=== PATIENT | male | born 1980 | race African-American/Black ===

== ENCOUNTER 2023-05-02 12:58 | Emergency (ER) | payer SELFPAY ==
[2023-05-02 13:05] VITALS: BP 135/87; PULSE 91; RESP 18; TEMP 36.8; O2SAT 100; BMI 22.3
--- NOTE | 2023-05-02 13:16 | ED_ITS ---
HPI - URI/Sore Throat General Chief Complaint: Upper Respiratory Infection Stated Complaint: VOMETING DIAHRREA Time Seen by Provider: 05/02/23 13:10 Source: patient History of Present Illness HPI Narrative: 43-year-old male presents for body aches cough and not feeling well. He has been sick since yesterday. Last week his son had influenza. All of the history is obtained from his significant other who provides his history. No vomiting or diarrhea. Related Data Home Medications ?Medication ?Instructions ?Recorded ?Confirmed No Known Home Medications 05/02/23 05/02/23 Allergies Allergy/AdvReac Type Severity Reaction Status Date / Time No Known Drug Allergies Allergy Verified 05/02/23 13:10 Review of Systems ROS Narrative A ten point review of systems is negative except as noted above. Exam Narrative Exam Narrative: Nurses note and vital signs reviewed and patient is not hypoxic. General: The patient appears in no apparent respiratory distress. He is laying on his side and appears uncomfortable and is curled up. Skin: Warm, dry, no pallor noted. There is no rash noted. Head: Normocephalic, atraumatic Eye: Normal conjunctiva, no drainage Ears, Nose, Mouth, and Throat: oral mucosa is moist. Nares patent. Cardiovascular: Regular Rate and Rhythm Respiratory: Patient is in no distress, no accessory muscle use, lungs are clear to auscultation, no wheezing, rales or rhonchi Back: non-tender GI: Soft and nontender Musculoskeletal: The patient has no evidence of calf tenderness, no pitting edema, symmetrical pulses noted bilaterally Neurological: Awake and alert Psychiatric: Cooperative Constitutional Vital Signs, click to edit/add: Last Vital Signs Temp 98.2 F 05/02/23 13:05 Pulse 91 H 05/02/23 13:05 Resp 18 05/02/23 13:05 BP 135/87 05/02/23 13:05 Pulse Ox 100 05/02/23 13:05 Course Vital Signs Vital signs: Vital Signs Temperature 98.2 F 05/02/23 13:05 Pulse Rate 91 H 05/02/23 13:05 Respiratory Rate 18 05/02/23 13:05 Blood Pressure 135/87 05/02/23 13:05 Pulse Oximetry 100 05/02/23 13:05 Temperature 98.2 F 05/02/23 13:05 Pulse Rate 91 H 05/02/23 13:05 Respiratory Rate 18 05/02/23 13:05 Blood Pressure 135/87 05/02/23 13:05 Pulse Oximetry 100 05/02/23 13:05 MDM - URI/Sore Throat MDM Narrative Medical decision making narrative: COVID and influenza test are negative. I am however highly suspicious of influenza because his son just got over influenza and his symptoms are consistent with influenza. He was given a work note and recommended Motrin. Treatment diagnosis and follow-up were discussed with the patient and his significant other. Differential Diagnosis Differential diagnosis: Likely upper respiratory infection, viral infection, influenza and other (COVID) Lab Data Attestation: I reviewed the patient's lab results. Labs: Lab Results 05/02/23 Range/Units 13:30 Influenza Type A Ag Negative Influenza Type B Ag Negative SARS-CoV-2 Ag (CV2AG) Negative (NEGATIVE) Discharge Plan Discharge Stand Alone Forms: Portal Instructions Chief Complaint: Upper Respiratory Infection Clinical Impression: Influenza-like illness Patient Disposition: Home, Self-Care Time of Disposition Decision: 14:00 Condition: Good Mode of Transportation: Private Vehicle Prescriptions / Home Meds: No Action No Known Home Medications Print Language: Beninese Instructions: Influenza (ED) Referrals: Physician,Non-Staff, MD [Primary Care Provider] - 1 week
[2023-05-02] MEDS: IBUPROFEN 400 MG TABLET 800 MG PO (13:32)
[2023-05-02 13:53] LABS: Influenza Virus A Antigen Negative; Influenza Virus B Antigen Negative; Internal Control Within Normal Limits
[2023-05-02 13:54] LABS: SARS-CoV-2 Ag NEGATIVE (NEGATIVE)
== END 2023-05-02 14:08 | disposition home or self-care (01) ==
PROVIDERS: Emergency Provider Emergency Medicine
DX: J11.1 Influenza due to unidentified influenza virus with other respiratory manifestations (principal); Z20.822 Contact with and (suspected) exposure to COVID-19
CPT/HCPCS: 87804; 87811; 99283